=== PATIENT | female | born 1990 | race Caucasian/White ===

== ENCOUNTER → 2017-02-28 | Outpatient (CLI) | payer OTHER | LOC: US 09:15 | DX: B18.2 Chronic viral hepatitis C (principal) | CPT/HCPCS: 76700 ==

== ENCOUNTER → 2017-03-08 | Outpatient (CLI) | payer OTHER | LOC: LAB 10:24 | DX: B18.2 Chronic viral hepatitis C (principal) | CPT/HCPCS: 36415; 82270; 86706 ==

== ENCOUNTER → 2021-06-25 | Outpatient (CLI) | payer OTHER ==
[2021-06-25 10:26] LABS: HEMOGLOBIN 14.7 gm/dl (12.3-15.3); RED BLOOD COUNT 4.55 M/UL (4.00-5.10)
[2021-06-25 10:58] LABS: BUN/CREATININE RATIO 18 (0-10)
[2021-06-26 08:14] LABS: HIV SCREEN 4TH GENERATION WRFX Non Reactive (Non Reactive)
[2021-06-26 12:14] LABS: HBSAG SCREEN Negative (Negative); HCV ANTIBODY >11.0 (0.0-0.9)
== END ==
LOC: LAB 09:41
DX: F11.20 Opioid dependence, uncomplicated (principal)
CPT/HCPCS: 36415; 80053; 85027; 86317; 86708; 86803; 87340; 87389

== ENCOUNTER → 2022-04-15 | Outpatient (CLI) | payer OTHER | LOC: RT 13:52 | DX: Z01.818 Encounter for other preprocedural examination (principal) | CPT/HCPCS: 71046; 93005 ==

== ENCOUNTER → 2022-04-20 | Outpatient (CLI) | payer OTHER | LOC: US 10:44 | DX: R10.2 Pelvic and perineal pain (principal) | CPT/HCPCS: 76830 ==